=== PATIENT | male | born 1975 | race Caucasian/White ===

== ENCOUNTER 2019-08-14 19:42 | Emergency (ER) | payer SELFPAY ==
[~2019-08-14] VITALS: Ht 180.3 cm; Wt 70.3 kg
[~2019-08-14 19:42] MED LIST: IBUP600 PO; TRAM50 PO
[2019-08-14 20:23] LABS: Influenza A Negative (NEGATIVE); Influenza B Negative (NEGATIVE)
== END 2019-08-14 22:00 | disposition left against medical advice (07) ==
LOC: ER 19:42
PROVIDERS: Physician Assistant
DX: Z53.21 Procedure and treatment not carried out due to patient leaving prior to being seen by health care provider (principal)
CPT/HCPCS: 87804; 99283